=== PATIENT | male | born 1965 | race Hispanic/Latino ===

== ENCOUNTER 2024-10-02 07:23 | Day surgery (SDC) | payer OTHER ==
[2024-09-30 09:56] LABS: BASOPHILS # (AUTO) 0.06 K/uL (0.00-0.20); BASOPHILS % (AUTO) 0.9 % (0.0-5.0); EOSINOPHILS # (AUTO) 0.32 K/uL (0.00-0.70); HEMATOCRIT 49.4 % (42-54); IMMATURE GRANULOCYTE ABSOLUTE 0.02 K/uL (0-1); LYMPHOCYTES # (AUTO) 1.7 K/uL (1.0-4.8); LYMPHOCYTES % (AUTO) 27.1 % (21.0-51.0); MEAN CORPUSCULAR HEMOGLOBIN 30.4 pg (27.0-33.0); MEAN CORPUSCULAR HGB CONC 33.6 g/dL (32.0-36.0); MEAN CORPUSCULAR VOLUME 90.5 fL (79-99); MONOCYTES # (AUTO) 0.5 K/uL (0.1-1.0); MONOCYTES % (AUTO) 7.7 % (3.0-13.0); NEUTROPHILS # (AUTO) 3.8 K/uL (1.8-7.7); PLATELET COUNT (AUTO) 208 K/uL (130-400); RED BLOOD CELL COUNT(AUTO) 5.46 MIL/uL (4.50-6.20); RED CELL DISTRIBUTION WIDTH 12.6 % (11.0-15.5); WHITE BLOOD COUNT (AUTO) 6.4 K/uL (4.8-10.8)
[2024-09-30 10:03] LABS: CREATININE 1.1 mg/dL (0.5-1.3); POTASSIUM 5.1 mmol/L (3.5-5.1)
[2024-09-30 10:06] LABS: INR 0.97 (0.85-1.15); PROTHROMBIN TIME 10.3 SEC (9.6-11.6)
[2024-09-30 10:07] LABS: PARTIAL THROMBOPLASTIN TIME 24.5 SEC (26.3-35.5)
[2024-09-30 10:11] VITALS: BP 140/81; PULSE 67; RESP 18; TEMP 97.2
[2024-10-02] VITALS (14 sets, daily range): BP systolic 116–141; BP diastolic 75–87; PULSE 55–78; RESP 14–19; TEMP 96.4–97.5
[~2024-10-02] VITALS: Ht 172.7 cm; Wt 95.3 kg
[2024-10-02] MEDS: ceFAZolin SODIUM 2 GM VIAL ONE (08:30)
[2024-10-02] MEDS: LACTATED RINGERS 1000ML 1,000 ML IV ONE (08:30)
[2024-10-02] MEDS ORDERED: dexaMETHasone SOD PHOSPHATE 10MG/ML 1ML VIAL ONE (08:52)
[2024-10-02] MEDS ORDERED: LIDOCAINE PF 100MG/5ML (2%) SYRINGE 5ML ONE (08:52)
[2024-10-02] MEDS ORDERED: SUCCINYLCHOLINE CHLORIDE 20 MG/ML 10 ML VIAL ONE (08:52)
[2024-10-02] MEDS ORDERED: ondanSETRON 4MG INJ ONE (08:52)
[2024-10-02] MEDS ORDERED: rocuRONium bROMide 10MG/1ML 5ML VL ONE (08:53)
[2024-10-02] MEDS ORDERED: NEOSTIGMINE METHYLSULFATE 1MG/ML IV ONE (08:53)
[2024-10-02] MEDS ORDERED: GLYCOPYRROLATE 0.2 MG/ML 5 ML VIAL ONE (08:53)
[2024-10-02] MEDS ORDERED: proPOFol 10 MG/ML 20ML VIAL IV ONE (08:53)
[2024-10-02] MEDS ORDERED: FENTanyl CITRate PF 50 MCG/1 ML 2ML VIAL ONE ×3 (08:54→11:50)
[2024-10-02] MEDS ORDERED: MIDAZOLAM HCL 1 MG/ML 2ML VIAL ONE (08:54)
[2024-10-02] MEDS: ceFAZolin SODIUM 2 GM VIAL IVPB ONE (10:56)
[2024-10-02] MEDS ORDERED: ACET-2079 PO (11:04)
[2024-10-02] MEDS: BUPIvacaine/PF 0.25% 30ML VIAL IJ ONE (11:33)
[2024-10-02] MEDS ORDERED: BUPIvacaine/PF 0.25% 30ML VIAL IJ ONE (11:48)
[2024-10-02] MEDS: FENTanyl CITRate PF 50 MCG/1 ML 2ML VIAL ONE (12:43)
--- NOTE | 2024-10-02 15:26 | OP ---
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 The trochlea had some mild grade two with a focal area of grade 3. Significant synovitis throughout. Lateral gutter with no loose bodies. Lateral compartment was some grade 2 chondromalacia on the femur and diffuse fraying of the meniscal tissue. There was some focal grade 3 lesions of the femoral condyle and diffuse grade 2-3 lesions of the tibial plateau. We performed debridement with shaving chondroplasty in this compartment were removing loose cartilage flaps in gently debriding the edges of the significantly frayed meniscal tissue. We also identified a large chondral flap off the lateral femoral condyle next to the notch and debrided this. The notch was examined with the ACL noted to be intact. The medial compartment was significantly abnormal with very large complex tear of the medial meniscus extending back into the posterior horn body region. Additionally there was a very large grade 4 chondromalacia lesion of both the medial femoral condyle and medial tibial plateau of the force medial portion. The medial gutter was noted to a large osteophyte off of the medial fe moral condyle but no loose bodies identified. 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 Patient reported that he was having mechanical symptoms since the time of that injury including locking and popping of the knee. On MRI he was noted to have cartilage wear present but also with meniscus tearing in the medial compartment and possible loose body identified anteriorly. We discussed with the patient that he does have significant cartilage wear and a knee scope male only provide him some benefit. We discussed that if he does have a loose body within the joint that is causing him to lose range motion it is important to get that resolved. We did discuss that he was significant cartilage wear and likely down the road would need total knee arthroplasty. After discussion of the risks, benefits, and alternatives, the patient voluntarily agreed to undergo the aforementioned procedure. DESCRIPTION OF PROCEDURE: Patient was properly identified in the preoperative holding area. Surgical site marking was verified and surgery consent reviewed. The patient was then taken to the operating room and placed in supine position on the OR table. After induction of general anesthesia, preoperative antibiotics were given, all bony prominences were well-padded, and a well padded tourniquet was applied but not inflated at this time. The right lower extremity was then prepped and draped in usual sterile fashion. Surgical timeout was done verifying correct surgery, side, site, and location to be performed. We then began the procedure by making a standard anterolateral portal with an 11 blade and inserted our arthroscope through here. We made our anterior medial portal under direct visualization using spinal needle for localization. We then inserted our probe and performed our diagnostic arthroscopy with the above mentioned findings. At this point we inserted shaver device and performed our shaving chondroplasty of the lateral femoral condyle and light meniscal debridement in the lateral compartment. We transitioned into the medial compartment where we used meniscal biters to assist in resecting the complex meniscal tear back to a stable leading edge. We then inserted the shaver and further debrided the meniscus in the medial compartment. Once we were happy with our debridement, we then thoroughly irrigated out the wound with normal saline. We removed as much fluid from the knee as possible. We then injected local anesthetic within the capsule of the joint as well as around the portal sites. Our portal sites were then repaired using 3-0 nylon in simple fashion. Sterile dressing was then applied consisting of Xeroform, 4 x 4's, ABD, cast padding, and an Tal wrap. The patient was then awakened from anesthesia and taken to recovery room in stable condition. ZAIRA BURNETTE MD Oct 02, 2024 15:25
== END 2024-10-02 15:00 | disposition home or self-care (01) ==
LOC: DAH 07:23
PROVIDERS: ATTEND Student in an Organized Health Care Education/Training Program
DX: S83.231A Complex tear of medial meniscus, current injury, right knee, initial encounter (principal); S83.281A Other tear of lateral meniscus, current injury, right knee, initial encounter; M94.261 Chondromalacia, right knee; M65.861 Other synovitis and tenosynovitis, right lower leg; M23.91 Unspecified internal derangement of right knee; M25.661 Stiffness of right knee, not elsewhere classified; M25.561 Pain in right knee; E66.9 Obesity, unspecified; Z98.890 Other specified postprocedural states; Z83.3 Family history of diabetes mellitus; Z82.49 Family history of ischemic heart disease and other diseases of the circulatory system; Z82.3 Family history of stroke; Z88.8 Allergy status to other drugs, medicaments and biological substances; Z68.32 Body mass index [BMI] 32.0-32.9, adult; Z79.01 Long term (current) use of anticoagulants; X58.XXXA Exposure to other specified factors, initial encounter; Y93.89 Activity, other specified; Y92.89 Other specified places as the place of occurrence of the external cause; Y99.8 Other external cause status
CPT/HCPCS: 80048; 85025; 85610; 85730; 36415; 29880; 97161; 97116; A4663; J7120; J3010 ×4; J1100; J0330; J0665 ×2; J3490 ×2; J2003; J2250; J2704; J2405; J2710; J0690 ×2; A6223; A4649 ×2; A4930; A5120; A4215; A4223; A4222; A4221; A6450